=== PATIENT | male | born 1970 ===

== ENCOUNTER 2025-02-06 17:39 | Emergency (ER) | payer SELFPAY ==
[2025-02-06 17:53] VITALS: BP 124/81; PULSE 80; O2SAT 94; BMI 22.4
[2025-02-06 18:03] LABS: Prothrombin Time Whole Bld POC 12.1 sec (11.1-13.5)
[2025-02-06 18:04] LABS: Glucose, Whole Blood 122 mg/dL (60-115)
--- NOTE | 2025-02-06 18:07 | ED.GENADULT ---
HPI - General Adult General Chief complaint: Weakness Stated complaint: fall, back pain Time Seen by Provider: 02/06/25 17:51 Source: patient and EMS Mode of arrival: EMS Limitations: no limitations History of Present Illness ED Provider: Dr. Michelle Arrieta HPI narrative: patient comes to the emergency room via ambulance. Initially, patient reported that 1 hour 45 minutes prior to arrival, patient states that he fell down a flight of stairs. Patient states that his left upper extremity and left lower extremity gave up and he fell. 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 Patient states that he can not move his left arm or left leg at all. 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 Related Data Allergies Allergy/AdvReac Type Severity Reaction Status Date / Time No Known Allergies Allergy Verified 02/06/25 18:15 Review of Systems Review of Systems: Constitutional : No Weight loss, No Fever, No Chills, No Night Sweats, No Fatigue, No Malaise ENT/Mouth : No Hearing loss, No Ear Pain, No Nasal Congestion, No Sinus Pain, No Hoarseness, No sore throat, No Rhinorrhea, No Swallowing Difficulty Eyes: No Eye Pain, No Swelling, No Redness, No Foreign Body, No Discharge, No Vision Changes Cardiovascular : No Chest Pain, No SOB, No Dyspnea on Exertion, No Orthopnea, No Edema, No Palpitations Respiratory : No Cough, No Sputum, No Wheezing, No Smoke Exposure, No Dyspnea Gastrointestinal : No Nausea, No Vomiting, No Diarrhea, No Constipation, No abdominal Pain, No Hematochezia, No Melena Genitourinary : no irregular bleeding, No Dysuria, No Urinary Frequency, No Hematuria, No Urinary Incontinence, No Urgency, No Flank Pain, No Urinary Flow Changes, No Hesitancy Musculoskeletal : complaining of pain all over Skin : No Skin Lesions, No rash Neuro : complaining of complete weakness in the left arm and left leg Psych : No Anxiety/Panic, No Depression, No SI/HI/AH/VH, No Social Issues, Heme/Lymph: No Bruising, No Bleeding,No Lymphadenopathy Endocrine : No Polyuria, No Polydipsia, No Temperature Intolerance PMFSH Past Medical History Medical History (Updated 02/06/25 @ 18:13 by Michelle Arrieta MD) Sickle cell disease CVA (cerebral vascular accident) Social History Social History Advance Directives: No Advance Directives Information Provided: No Do you have a plan to hurt others: No Plan Physical Exam ED Vital Signs: Vital Signs - 24 hr 02/06/25 17:53 Oxygen Delivery Method Room Air BMI result Body Mass Index 22.4 NIH Stroke Scale Internal: Initial- Upon Arrival Level of Consciousness: Alert Level of Consciousness Questions: Answers both questions correctly Level of Consciousness Commands: Performs both tasks correctly Best Gaze: Normal Visual: No visual loss Facial Palsy: Normal Motor Arm (Right): No drift Motor Arm (Left): No movement Motor Leg (Right): No drift Motor Leg (Left): No movement Limb Ataxia: Absent Sensory: Normal Best Language: No aphasia Dysarthia: Normal Extinction and Inattention: No abnormality Score: 8 Course Course Course Narrative: initially, when patient came in, on physical exam, his NIH score was 8. As soon as we got the patient in the CAT scan, patient states that he is in too much pain and he will not do a CAT scan all his we give him pain medication. Patient said I want 4 IM and 50 of Benadryl I asked the patient that if I give him 4 IM of morphine and 50 of Benadryl, if he would lie down so we can do the CAT scan and a trauma workup. Patient agreed. However, when patient's nurse went to get him morphine, patient states that he refuses morphine, States that the only med that he will take is Dilaudid. He refuses to take any other pain medication. I discussed with the patient that we can give him only 1 IM of Dilaudid and 50 of Ben[address] before his CT. Patient refused, patient states that he will take nothing lower than 4 mg IM of Dilaudid I discussed with the patient that we will not give him any IM medications other than what I offered before. Patient refusing any further care. Patient's stood up and started walking towards the door [facility] [address], moving his left leg. It was noted that patient was holding his cane on the left hand which he previously claimed that he could not move at all. EMS noted that when patient called EMS, he was standing and he put himself in the stretcher. as mentioned above, patient refused any other care since he was not given 4 mg of IM Dilaudid Medical Decision Making Medical Decision Making MDM Narrative: as mentioned above, patient claimed that he could not move his left arm and left leg at all. When patient demanded for mg of IM Dilaudid and his request was declined, patient got up and walked, moving all extremities Lab Data Labs: Lab Results 02/06/25 02/06/25 Range/Units 17:57 17:58 Whole Blood PT 12.1 (11.1-13.5) sec Whole Blood INR 1.0 (0.9-1.1) POC Glucose 122 H (60-115) mg/dL Discharge Plan Discharge Clinical Impression: Drug-seeking behavior Patient Disposition: Left Against Medical Advice Additional Instructions: Please follow-up with your primary care physician tomorrow. If you have any worsening or new symptoms, please return to the emergency room or call 911 Print Language: Maltese
--- NOTE | 2025-02-06 18:16 | PC.NURSE ---
Patient upon EMS arrival was deemed d/t left sided weakness in left arm and left leg unable to move and deficits 1.5hr ago. stroke alert called by full charge bookkeeper. Pt was brought right into CT scan. upon obtaining BS 122 and vitals patient demanding medication to be able to tolerate CT scan otherwise he can't do it and he needs pain meds and Benadryl. MD provided orders for morphine 4mg IM and benadryl 50mg IM. Patient stated I can't take morphine only diluadid and im allergic to a ton of other things. MD at CT scan to discuss the need for diluadid is not appropriate at this time. Patient was unwilling to take any other medication interventions without it and refused all care and stated If you can't give it to me then ill just go somewhere else Patient sitting up on CT scan and using both arms and hands to put on coat and requesting to leave. Patient stands up off CT scan and using left arm for cane and walks out of CT scan and then request wheelchair to wait for family pickup in waiting room. Pt brought by [employer] and security out to triage to wait for family. AMA documented by RN and MD. NO IV PRESENT.
[2025-02-06 18:25] VITALS: BP 0/0; PULSE 0; RESP 0; TEMP -17.7; TEMP 0
== END 2025-02-06 18:26 | disposition left against medical advice (07) ==
PROVIDERS: Emergency Provider Emergency Medicine
DX: Z76.5 Malingerer [conscious simulation] (principal); R06.02 Shortness of breath; Z91.81 History of falling; R29.708 NIHSS score 8; Z53.29 Procedure and treatment not carried out because of patient's decision for other reasons; E87.1 Hypo-osmolality and hyponatremia; Z86.73 Personal history of transient ischemic attack (TIA), and cerebral infarction without residual deficits
CPT/HCPCS: 82947; 85610; 99282; 99283